=== PATIENT | female | born 1990 | race Caucasian/White ===

== ENCOUNTER 2019-08-26 00:01 | Emergency (ER) | payer MEDICAID ==
[~2019-08-26] VITALS: Ht 162.6 cm; Wt 53.5 kg
--- NOTE | 2019-08-26 00:28 | NUR ---
Dr. de la cruz at bedside for MSE
[2019-08-26] MEDS ORDERED: IBUPROFEN 600 MG TABLET PO ONE (01:00)
--- NOTE | 2019-08-26 01:05 | NUR ---
Patient discharged to home in stable condition. Written and verbal after care instructions given. Patient verbalizes understanding of instructions. Stressed follow up or return to ER for worsening s/s. Patient ambulating with steady gait
[2019-08-26 01:11] VITALS: BP 128/83
== END 2019-08-26 01:05 | disposition home or self-care (01) ==
LOC: ER 00:08
DX: R05 Cough (principal); J02.9 Acute pharyngitis, unspecified; R51 Headache; R07.9 Chest pain, unspecified; I45.10 Unspecified right bundle-branch block
CPT/HCPCS: 71045; 93005; A4663